=== PATIENT | female | born 1950 | race Caucasian/White ===

== ENCOUNTER 2021-05-07 17:31 | Observation (INO) | payer MEDICARE ==
[2021-05-07] MEDS ORDERED: PANTOPRAZOLE 40 MG/10 ML VIAL IVP STA (18:35)
[2021-05-07 19:05] LABS: Basophils % (A) 0 %; Eosinophils # (A) 0.2 k/uL (0-0.7); Eosinophils % (A) 4 %; HCT 26.7 % (34.0-46.0); HGB 8.8 gm/dL (11.4-16.0); Lymphocytes # (A) 1.6 k/uL (1.0-4.8); Lymphocytes % (A) 24 %; MCH 29.9 pg (25.0-35.0); MCHC 33.1 g/dL (31.0-37.0); MCV 90.2 fL (80.0-100.0); Mean Platelet Volume 7.7; Monocytes # (A) 0.3 k/uL (0-1.0); Monocytes % (A) 5 %; Neutrophils # (A) 4.4 k/uL (1.3-7.7); Neutrophils % (A) 65 %; Platelet Count 190 k/uL (150-450); RBC 2.96 m/uL (3.80-5.40); RDW 15.2 % (11.5-15.5); WBC 6.7 k/uL (3.8-10.6)
[2021-05-07 19:15] LABS: Partial Thromboplastin Time 24.7 sec (22.0-30.0); Prothrombin Time 10.8 sec (9.0-12.0)
[2021-05-07 19:16] LABS: Albumin 3.5 g/dL (3.5-5.0); Calcium 8.6 mg/dL (8.4-10.2); Magnesium 1.9 mg/dL (1.6-2.3); Potassium 4.7 mmol/L (3.5-5.1); Total Bilirubin 0.2 mg/dL (0.2-1.3); Total Protein 6.6 g/dL (6.3-8.2)
--- NOTE | 2021-05-07 20:41 | ED ---
General Adult HPI - General Chief complaint: GI Bleed Stated complaint: Hypotensive, low heart rate, rectal bleeding Time Seen by Provider: 05/07/21 18:11 Source: patient, RN notes reviewed, old records reviewed Mode of arrival: ambulatory Limitations: no limitations - History of Present Illness Initial comments: Patient is a 70-year-old female with history of diabetes, heart disease, kidney disease, presenting to the emergency Department with complaints of low blood pressure as well as possible GI bleed. Patient usually lives in [place], all of her physicians are in [place]. She comes up here for a few months every year. She states that yesterday and today she had a very dark stools along with blood mixed in it. She also checked her blood pressure at home and it was low, she contact her doctors in [place] and they recommended coming in for evaluation. Patient has felt fatigued, short of breath and just generalized weakness. She states she only has "one good kidney." She denies any chest pains or shortness of breath, no abdominal pain. She denies any fevers or chills, no cough or congestion. She states she has been eating and drinking as normal. She is on Plavix and aspirin. She has no further complaints. Patient's vital signs are stable upon arrival. - Related Data Home Medications Medication Instructions Recorded Confirmed ALPRAZolam [Xanax] 0.5 mg PO BID PRN 05/07/21 05/07/21 Butalb/APAP/Caff 50-325-40Mg 1 tab PO Q4H PRN 05/07/21 05/07/21 [Fioricet 50-325-40] Carvedilol [Coreg] 25 mg PO BID 05/07/21 05/07/21 Clopidogrel [Plavix] 75 mg PO DAILY 05/07/21 05/07/21 Ergocalciferol (Vitamin D2) 1,250 mcg PO WE 05/07/21 05/07/21 [Drisdol (50,000 Iu)] Ferrous Sulfate [Feosol] 325 mg PO DAILY 05/07/21 05/07/21 Levothyroxine Sodium [Synthroid] 75 mcg PO DAILY 05/07/21 05/07/21 Pantoprazole [Protonix] 40 mg PO DAILY 05/07/21 05/07/21 Rosuvastatin [Crestor] 20 mg PO HS 05/07/21 05/07/21 Topiramate 200 mg PO HS 05/07/21 05/07/21 Torsemide [Demadex] 10 mg PO DAILY 05/07/21 05/07/21 Valsartan 160 mg PO HS 05/07/21 05/07/21 Venlafaxine HCl [Effexor] 100 mg PO BID 05/07/21 05/07/21 amLODIPine [Norvasc] 10 mg PO DAILY 05/07/21 05/07/21 oxyCODONE-APAP 5-325MG [Percocet 1 tab PO Q6HR PRN 05/07/21 05/07/21 5-325 mg] traZODone HCL 150 mg PO HS 05/07/21 05/07/21 Allergies Allergy/AdvReac Type Severity Reaction Status Date / Time ciprofloxacin [From Cipro] Allergy Unknown Verified 05/07/21 19:41 clarithromycin [From Biaxin] Allergy Unknown Verified 05/07/21 19:41 morphine Allergy Unknown Verified 05/07/21 19:41 Penicillins Allergy Unknown Verified 05/07/21 19:41 Review of Systems ROS Statement: Those systems with pertinent positive or pertinent negative responses have been documented in the HPI. ROS Other: All systems not noted in ROS Statement are negative. Past Medical History Past Medical History: Diabetes Mellitus, Thyroid Disorder Additional Past Medical History / Comment(s): Quad Bipass. kidney issues History of Any Multi-Drug Resistant Organisms: None Reported Past Surgical History: No Surgical Hx Reported, Appendectomy, Cholecystectomy, Hysterectomy Additional Past Surgical History / Comment(s): Quad Bipass. bowel surgery. Past Psychological History: No Psychological Hx Reported Smoking Status: Current every day smoker Past Alcohol Use History: None Reported Past Drug Use History: None Reported General Exam - General Exam Comments Initial Comments: GENERAL: Patient is well-developed and well-nourished. Patient is nontoxic and in no acute distress, slightly pale. HEAD: Atraumatic, normocephalic. EYES: Pupils equal round and reactive to light, extraocular movements intact, sclera anicteric, conjunctiva are normal. Eyelids were unremarkable. ENT: Nares patent, oropharynx clear without exudates. Dry mucous membranes. NECK: Normal range of motion, supple without lymphadenopathy or JVD. LUNGS: Unlabored respirations. Breath sounds clear to auscultation bilaterally and equal. No wheezes rales or rhonchi. HEART: Regular rate and rhythm without murmurs, rubs or gallops. ABDOMEN: Soft, nontender, normoactive bowel sounds. No guarding, no rebound. No masses appreciated. MUSCULOSKELETAL: Normal extremities with adequate strength and normal range of motion, no pitting or edema. No clubbing or cyanosis. NEUROLOGICAL: Patient is alert and oriented x 3. Motor and sensory are also intact. Cranial nerves II through XII grossly intact. Symmetrical smile. Normal speech, normal gait. PSYCH: Normal mood, normal affect. SKIN: Warm, Dry, normal turgor, no rashes or lesions noted. Limitations: no limitations Rectal exam: Present: normal rectal tone, heme (-) stool, black stool. Absent: hemorrhoids Course Vital Signs 05/07/21 05/07/21 05/07/21 17:50 18:56 19:40 Temperature 98.6 F Pulse Rate 61 53 L 52 L Respiratory 18 20 20 Rate Blood Pressure 119/43 133/56 O2 Sat by Pulse 98 97 Oximetry 05/07/21 21:35 Temperature Pulse Rate 54 L Respiratory 20 Rate Blood Pressure 140/49 O2 Sat by Pulse 98 Oximetry EKG Findings - EKG Comments: EKG Findings:: Sinus bradycardia, septal infarct, age undetermined, no signs of acute ST segment elevation. Ventricular rate 54, NM interval 196, QTC 460. Medical Decision Making - Medical Decision Making Patient is a 70-year-old female history of diabetes, heart disease, kidney disease, presenting with low blood pressure at home, black stools mixed with blood over the last 2 days. She's felt generalized weakness. Her vitals are stable upon arrival. EKG shows sinus bradycardia, no acute process. Patient's labs show a normal white count, hemoglobin is lower 8.8, creatinine is elevated from baseline at 2.5 for the BUN of 50. Troponin is negative, stool occult came back negative, she did have black stools on exam. Patient did have blood work from a recent hospital stay in [place] which shows her hemoglobin at 10.2, her creatinine was at 189 with BUN 18. Patient will be admitted for HANSA, possible GI bleed. The patient accepted by Dr. Gaona. Case discussed with Dr. Dinero. - Lab Data Result diagrams: 05/07/21 18:56 05/07/21 18:56 Lab Results 05/07/21 05/07/21 05/07/21 Range/Units 18:56 18:56 18:56 WBC 6.7 (3.8-10.6) k/uL RBC 2.96 L (3.80-5.40) m/uL Hgb 8.8 L (11.4-16.0) gm/dL Hct 26.7 L (34.0-46.0) % MCV 90.2 (80.0-100.0) fL MCH 29.9 (25.0-35.0) pg MCHC 33.1 (31.0-37.0) g/dL RDW 15.2 (11.5-15.5) % Plt Count 190 (150-450) k/uL MPV 7.7 Neutrophils % 65 % Lymphocytes % 24 % Monocytes % 5 % Eosinophils % 4 % Basophils % 0 % Neutrophils # 4.4 (1.3-7.7) k/uL Lymphocytes # 1.6 (1.0-4.8) k/uL Monocytes # 0.3 (0-1.0) k/uL Eosinophils # 0.2 (0-0.7) k/uL Basophils # 0.0 (0-0.2) k/uL PT 10.8 (9.0-12.0) sec INR 1.0 (<1.2) APTT 24.7 (22.0-30.0) sec Sodium 138 (137-145) mmol/L Potassium 4.7 (3.5-5.1) mmol/L Chloride 110 H (98-107) mmol/L Carbon Dioxide 18 L (22-30) mmol/L Anion Gap 10 mmol/L BUN 50 H (7-17) mg/dL Creatinine 2.54 H (0.52-1.04) mg/dL Est GFR (CKD-EPI)AfAm 21 (>60 ml/min/1.73 sqM) Est GFR (CKD-EPI)NonAf 18 (>60 ml/min/1.73 sqM) Glucose 117 H (74-99) mg/dL Calcium 8.6 (8.4-10.2) mg/dL Magnesium 1.9 (1.6-2.3) mg/dL Total Bilirubin 0.2 (0.2-1.3) mg/dL AST 23 (14-36) U/L ALT 15 (4-34) U/L Alkaline Phosphatase 77 (38-126) U/L Troponin I (0.000-0.034) ng/mL Total Protein 6.6 (6.3-8.2) g/dL Albumin 3.5 (3.5-5.0) g/dL Stool Occult Blood (Negative) 05/07/21 05/07/21 Range/Units 18:56 18:56 WBC (3.8-10.6) k/uL RBC (3.80-5.40) m/uL Hgb (11.4-16.0) gm/dL Hct (34.0-46.0) % MCV (80.0-100.0) fL MCH (25.0-35.0) pg MCHC (31.0-37.0) g/dL RDW (11.5-15.5) % Plt Count (150-450) k/uL MPV Neutrophils % % Lymphocytes % % Monocytes % % Eosinophils % % Basophils % % Neutrophils # (1.3-7.7) k/uL Lymphocytes # (1.0-4.8) k/uL Monocytes # (0-1.0) k/uL Eosinophils # (0-0.7) k/uL Basophils # (0-0.2) k/uL PT (9.0-12.0) sec INR (<1.2) APTT (22.0-30.0) sec Sodium (137-145) mmol/L Potassium (3.5-5.1) mmol/L Chloride (98-107) mmol/L Carbon Dioxide (22-30) mmol/L Anion Gap mmol/L BUN (7-17) mg/dL Creatinine (0.52-1.04) mg/dL Est GFR (CKD-EPI)AfAm (>60 ml/min/1.73 sqM) Est GFR (CKD-EPI)NonAf (>60 ml/min/1.73 sqM) Glucose (74-99) mg/dL Calcium (8.4-10.2) mg/dL Magnesium (1.6-2.3) mg/dL Total Bilirubin (0.2-1.3) mg/dL AST (14-36) U/L ALT (4-34) U/L Alkaline Phosphatase (38-126) U/L Troponin I <0.012 (0.000-0.034) ng/mL Total Protein (6.3-8.2) g/dL Albumin (3.5-5.0) g/dL Stool Occult Blood Negative (Negative) Disposition Clinical Impression: Melena, HANSA (acute kidney injury), Anemia Disposition: ADMITTED IP TO THIS [facility] Condition: Stable Decision Date: 05/07/21 Decision Time: 20:41
[2021-05-07] MEDS ORDERED: NALOXONE 0.4 MG/ML 1 ML VIAL IV PRN (20:56)
[2021-05-07] MEDS ORDERED: ONDANSETRON 4 MG/2 ML VIAL IVP PRN (20:56)
[2021-05-07] MEDS ORDERED: ACETAMINOPHEN TAB 325 MG TAB PO PRN (20:56)
[2021-05-07] MEDS: SODIUM CHLORIDE 0.9% 1,000 ML IV SCH (21:47)
[2021-05-08] MEDS ORDERED: ALPRAZolam 0.5 MG TAB PO PRN (01:37)
--- NOTE | 2021-05-08 01:38 | P.HPIM ---
History of Present Illness H&P Date: 05/07/21 The patient is 71-year-old female, resident of [place], currently visiting family, with a PMH of hypertension, hypothyroidism, type II DM, peptic ulcer disease, chronic kidney disease, status post carotid endarterectomy in October 2020 who presents to the emergency room with complaints of fatigue and black tarry stools. Patient states that over the past 4-5 days, she has had gradually worsening lethargy. She noted to 3 days ago that she had developed black stools with intermittent bright red blood, non-mucousy. The patient states that she does take iron and has been doing so for several months now. She also reported somewhat diminished appetite over the past few days with decreased oral fluid intake. She denied any additional complaints. He denied chest discomfort, fever, cough. Denied nausea, vomiting, abdominal pain, diarrhea. Reports a prior history of GI bleeding at which time an endoscopy had revealed several ulcers requiring intervention several years ago. The patient had paperwork from hospital visit in [place] with laboratory evaluations noted. In our emergency room, laboratory evaluation had revealed a hemoglobin of 8.8 (previously 10), creatinine 2.54 (previously 1.89), stool occult blood negative, troponin less than 0.012, and platelets 190. Review of systems: Pertinent positives and negatives as discussed in HPI, a complete review of systems was performed and all other systems are negative. Physical examination: General: non toxic, no distress, appears at stated age, overweight Derm: no unusual rashes/lesions no unusual ecchymoses, warm, dry Head: atraumatic, normocephalic, symmetric Eyes: EOMI, no lid lag, anicteric sclera, pupils equal round reactive to light ENT: Nose and ears atraumatic, no thrush, no pharyngeal erythema Neck: No thyromegaly, no cervical lymphadenopathy, trachea midline, supple Mouth: no lip lesion, mucus membranes moist Cardiovascular: S1S2 reg, no murmur, positive posterior tibial pulse bilateral, no edema, capillary refill less than 2 seconds Lungs: CTA bilateral, no rhonchi, no rales , no accessory muscle use Abdominal: soft, nontender to palpation, no guarding, no appreciable organomegaly, normal bowel sounds Ext: no gross muscle atrophy, muscle strength 5 out of 5 in all 4 extremities grossly, no contractures, Neuro: CN II-XI grossly intact, light touch intact all 4 extremities, finger to nose within normal limits, Psych: Alert, oriented, appropriate affect Assessment/plan Acute kidney injury on chronic kidney disease -Likely secondary to poor oral intake -Gentle IV hydration and monitor BMP Normocytic anemia suspected secondary to GI bleeding with history of bleeding peptic ulcer disease -GI consulted -Clear liquid diet for now -Protonix IV Chronic conditions: Hypertension, hyperlipidemia, peripheral arterial disease, hypothyroidism, type II DM -Continue with home meds except antiplatelets in setting of suspected acute GI bleeding DVT prophylaxis -IPCDs The patient is admitted with an anticipated less than 2 midnight stay for evaluation of GIB CODE STATUS: Full Code Discussed with: Patient Anticipated discharge date: in am Anticipated discharge place: Home Past Medical History Past Medical History: Diabetes Mellitus, Thyroid Disorder Additional Past Medical History / Comment(s): Quad Bipass. kidney issues History of Any Multi-Drug Resistant Organisms: None Reported Past Surgical History: No Surgical Hx Reported, Appendectomy, Cholecystectomy, Hysterectomy Additional Past Surgical History / Comment(s): Quad Bipass. bowel surgery. Past Anesthesia/Blood Transfusion Reactions: No Reported Reaction Past Psychological History: No Psychological Hx Reported Smoking Status: Current every day smoker Past Alcohol Use History: None Reported Past Drug Use History: None Reported - Past Family History Mother Family Medical History: Cancer Medications and Allergies Home Medications Medication Instructions Recorded Confirmed Type ALPRAZolam [Xanax] 0.5 mg PO BID PRN 05/07/21 05/07/21 History Butalb/APAP/Caff 50-325-40Mg 1 tab PO Q4H PRN 05/07/21 05/07/21 History [Fioricet 50-325-40] Carvedilol [Coreg] 25 mg PO BID 05/07/21 05/07/21 History Clopidogrel [Plavix] 75 mg PO DAILY 05/07/21 05/07/21 History Ergocalciferol (Vitamin D2) 1,250 mcg PO WE 05/07/21 05/07/21 History [Drisdol (50,000 Iu)] Ferrous Sulfate [Feosol] 325 mg PO DAILY 05/07/21 05/07/21 History Levothyroxine Sodium [Synthroid] 75 mcg PO DAILY 05/07/21 05/07/21 History Pantoprazole [Protonix] 40 mg PO DAILY 05/07/21 05/07/21 History Rosuvastatin [Crestor] 20 mg PO HS 05/07/21 05/07/21 History Topiramate 200 mg PO HS 05/07/21 05/07/21 History Torsemide [Demadex] 10 mg PO DAILY 05/07/21 05/07/21 History Valsartan 160 mg PO HS 05/07/21 05/07/21 History Venlafaxine HCl [Effexor] 100 mg PO BID 05/07/21 05/07/21 History amLODIPine [Norvasc] 10 mg PO DAILY 05/07/21 05/07/21 History oxyCODONE-APAP 5-325MG [Percocet 1 tab PO Q6HR PRN 05/07/21 05/07/21 History 5-325 mg] traZODone HCL 150 mg PO HS 05/07/21 05/07/21 History Allergies Allergy/AdvReac Type Severity Reaction Status Date / Time ciprofloxacin [From Cipro] Allergy Unknown Verified 05/07/21 19:41 clarithromycin [From Biaxin] Allergy Unknown Verified 05/07/21 19:41 morphine Allergy Unknown Verified 05/07/21 19:41 Penicillins Allergy Unknown Verified 05/07/21 19:41 Physical Exam Vitals: Vital Signs Temp Pulse Pulse Resp BP BP Pulse Ox 05/07/21 23:40 98.2 F 56 L 16 150/66 99 05/07/21 21:35 54 L 20 140/49 98 05/07/21 19:40 52 L 20 133/56 97 05/07/21 18:56 53 L 20 05/07/21 17:50 98.6 F 61 18 119/43 98 Intake and Output 05/07/21 05/07/21 05/08/21 14:59 22:59 06:59 Other: Weight 86.183 kg Results CBC & Chem 7: 05/07/21 18:56 05/07/21 18:56 Labs: Abnormal Lab Results - Last 24 Hours (Table) 05/07/21 05/07/21 Range/Units 18:56 18:56 RBC 2.96 L (3.80-5.40) m/uL Hgb 8.8 L (11.4-16.0) gm/dL Hct 26.7 L (34.0-46.0) % Chloride 110 H (98-107) mmol/L Carbon Dioxide 18 L (22-30) mmol/L BUN 50 H (7-17) mg/dL Creatinine 2.54 H (0.52-1.04) mg/dL Glucose 117 H (74-99) mg/dL Thrombosis Risk Factor Assmnt - Choose All That Apply Any of the Below Risk Factors Present?: Yes Each Factor Represents 1 point: Obesity (BMI >25) Other Risk Factors: Yes Each Risk Factor Represents 2 Points: Age 61-74 years Other congenital or acquired thrombophilia - If yes, enter type in comment: No Thrombosis Risk Factor Assessment Total Risk Factor Score: 3 Thrombosis Risk Factor Assessment Level: Moderate Risk
[2021-05-08] MEDS: LEVOTHYROXINE 75 MCG TAB PO SCH (05:59)
[2021-05-08] MEDS ORDERED: BUTALB/APAP/CAFF 50-325-40MG TAB PO PRN (08:00)
[2021-05-08] MEDS: PANTOPRAZOLE 40 MG/10 ML VIAL IV SCH (09:37)
[2021-05-08 12:16] LABS: HGB 7.7 g/dL (12.0-15.0); MCH 28.3 pg (27.0-32.0); MCHC 30.8 g/dL (32.0-37.0); MCV 91.9 fL (80.0-97.0); Mean Platelet Volume 10.8 fL (9.5-12.2); Platelet Count 157 X 10*3/uL (140-440); RBC 2.72 X 10*6/uL (4.10-5.20); RDW 14.6 % (11.5-14.5)
--- NOTE | 2021-05-08 12:44 | P.PN ---
Subjective Patient is doing fairly well today. She denies any bowel movement since admission. No acute events overnight. Hemoglobin this morning 7.7. Objective - Vital Signs Vital signs: Vital Signs Temp 98.0 F 05/08/21 07:00 Pulse 56 L 05/08/21 07:00 Resp 16 05/08/21 08:00 BP 137/56 05/08/21 07:00 Pulse Ox 98 05/08/21 07:00 Intake & Output 05/07/21 05/08/21 05/08/21 18:59 06:59 18:59 Weight 86.183 kg 86.183 kg Other: # Voids 2 1 - Exam General: The patient is awake and alert, in no distress Eye: there is normal conjunctiva bilaterally. Neck: The neck is supple, there is no JVD. Cardiovascular: Normal S1-S2, no S3-S4, no murmurs. Respiratory: Lungs clear to auscultation bilaterally Gastrointestinal: Abdomen is soft, nontender Musculoskeletal: There is no pedal edema. Neurological:. Speech is normal. Skin: Skin is warm and dry - Labs CBC & Chem 7: 05/08/21 06:28 05/07/21 18:56 Labs: Abnormal Lab Results - Last 24 Hours (Table) 05/07/21 05/07/21 05/08/21 Range/Units 18:56 18:56 06:28 RBC 2.96 L 2.72 L (3.80-5.40) m/uL Hgb 8.8 L 7.7 L (11.4-16.0) gm/dL Hct 26.7 L 25.0 L (34.0-46.0) % MCHC 30.8 L (32.0-37.0) g/dL RDW 14.6 H (11.5-14.5) % Chloride 110 H (98-107) mmol/L Carbon Dioxide 18 L (22-30) mmol/L BUN 50 H (7-17) mg/dL Creatinine 2.54 H (0.52-1.04) mg/dL Glucose 117 H (74-99) mg/dL Assessment and Plan Assessment: The patient is 71-year-old female, resident of [place], currently visiting family, with a PMH of hypertension, hypothyroidism, type II DM, peptic ulcer disease, chronic kidney disease, status post carotid endarterectomy in October 2020 who presents to the emergency room with complaints of fatigue and black tarry stools. Patient was evaluated in the ER and admitted to the hospital for further management of her medical problems noted below. Assessment/plan Acute kidney injury on chronic kidney disease -Likely secondary to poor oral intake -Gentle IV hydration and monitor BMP awaiting repeat creatinine today Normocytic anemia suspected secondary to GI bleeding with history of bleeding peptic ulcer disease -Gen. surgery consulted -Nothing by mouth awaiting evaluation -Protonix IV Chronic conditions: Hypertension, hyperlipidemia, peripheral arterial disease, hypothyroidism, type II DM -Continue with home meds except antiplatelets in setting of suspected acute GI bleeding DVT prophylaxis -IPCDs The patient is admitted with an anticipated less than 2 midnight stay for evaluation of GIB CODE STATUS: Full Code Discussed with: Patient Anticipated discharge date: in am Anticipated discharge place: Home
[2021-05-08] MEDS: carvediloL 12.5 MG TAB PO SCH ×2 (12:59→17:28)
[2021-05-08 13:15] LABS: African American GFR (CKD) 21.5 (60.0-200.0); Anion Gap 11.2 mmol/L (4.00-12.00); BUN/Creat Ratio 18.4 Ratio (12.00-20.00); Calcium 8.6 mg/dL (8.7-10.3); Carbon Dioxide 17.8 mmol/L (21.6-31.8); Non-African American GFR(CKD) 18.6 (60.0-200.0); Potassium 4.2 mmol/L (3.5-5.5)
[2021-05-08] MEDS: SODIUM CHLORIDE 0.9% 1,000 ML IV SCH ×2 (14:25→19:55)
[2021-05-08] MEDS: FERROUS SULFATE 325 MG TAB PO SCH (14:26)
--- NOTE | 2021-05-08 14:30 | P.GSCN ---
History of Present Illness Consult date: 05/08/21 History of present illness: CHIEF COMPLAINT: Hematochezia HISTORY OF PRESENT ILLNESS: The patient is a 70 year old female visiting from [place] who reports three days of dark stools including epigastric abdominal pain. She reports significant cardiac history including CABG over 3 years ago with resultant GI bleed from perforation along her intestine. Her last colono scopy was over 5 years. She reports seeing her physicians prior to her visit to [place]. Her hemoglobin on admission was 8.8 mg/dL. She takes plavix and aspirin for her coronary artery disease. She drinks moderate amounts of coffee daily and complains of a headache. General surgery is consulted for GI bleed. PAST MEDICAL HISTORY: See list and reviewed PAST SURGICAL HISTORY: See list and reviewed MEDICATIONS: See list and reviewed ALLERGIES: See list and reviewed SOCIAL HISTORY: See list and reviewed FAMILY HISTORY: See list and reviewed REVIEW OF ORGAN SYSTEMS: CONSTITUTIONAL: No fevers or chills. No recent weight loss. EYES: Denies any trouble with vision. No glasses. HEENT: No difficulties with hearing. No nosebleeds. No difficulty swallowing. RESPIRATORY: Denies pneumonia. Denies any troubles with breathing or dyspnea on exertion. CARDIOVASCULAR: Has coronary artery disease status post CABG 3 years ago. Has congestive heart failure. Has hyperlipidemia. Has hypertensive heart disease. GASTROINTESTINAL: Has dark blood in stools. Past history of GI bleed with bowel perforation. Has gastroesophageal reflux disease. GENITOURINARY: Denies any blood in urine or increased urinary frequency. NEUROLOGICAL: Denies any numbness or tingling along the distal extremities. Has headaches. MUSCULOSKELETAL: Denies any back pain, stiffness or joint arthritis. SKIN: No current skin cancer. No rash. PSYCHIATRIC: Has depression. Has anxiety. ENDOCRINE: Has hypothyroidism. Has diabetes type II. HEME/LYMPHATIC: Denies any lumps and bumps around the neck. No recent deep venous thrombosis. ALLERGY/IMMUNOLOGY: No immunoglobulin therapy. No immune deficiencies. BREAST: Denies current breast lumps, pain or nipple discharge. PHYSICAL EXAM: VITALS: Reviewed CONSTITUTIONAL: Well developed and in no acute distress. EYES: Conjuctivae without sclera icterus. Extraocular movements grossly intact. HEAD, EARS, NOSE, THROAT: Moist buccal mucosa. Head is atraumatic, normocephalic. Hears conversational speech. No nasal drainage. NECK: Supple. No JV distention. No thyroidomegaly. RESPIRATORY: Non-labored respirations and equal bilateral excursions. No gross wheezes. CARDIOVASCULAR: Regular rate and rhythm. Palpable 2+ radial pulses. ABDOMEN: No peritonitis. LYMPH: No gross neck lymphadenopathy. MUSCULOSKELETAL: No clubbing, cyanosis. SKIN: Warm and well perfused with good skin turgor. NEUROLOGIC: Cranial nerves II through XII grossly intact. No focal or lateralizing signs. PSYCH: Appropriate affect. Alert and oriented to person, place and time. Displays appropriate insight. CLINCAL LABS: Reviewed. Hgb down from 8.8 to 7.7. Creatinine elevated 2.54. EKG: Sinus bradycardia and septal infarct. ASSESSMENT: 1. GI bleed 2. Coronary artery disease 3. Anemia. 4. Acute kidney injury. PLAN: 1. Recommend EGD and colonoscopy for GI bleed. 2. May have clear liquid diet and coffee 3. Bowel prep described. 4. Hold Plavix and antiplatelets. ADVANCE DIRECTIVE: Thank you for this kind consultation. Past Medical History Past Medical History: Diabetes Mellitus, Thyroid Disorder Additional Past Medical History / Comment(s): Quad Bipass. kidney issues History of Any Multi-Drug Resistant Organisms: None Reported Past Surgical History: No Surgical Hx Reported, Appendectomy, Cholecystectomy, Hysterectomy Additional Past Surgical History / Comment(s): Quad Bipass. bowel surgery. Past Anesthesia/Blood Transfusion Reactions: No Reported Reaction Past Psychological History: No Psychological Hx Reported Smoking Status: Current every day smoker Past Alcohol Use History: None Reported Past Drug Use History: None Reported - Past Family History Mother Family Medical History: Cancer Medications and Allergies Home Medications Medication Instructions Recorded Confirmed Type ALPRAZolam [Xanax] 0.5 mg PO BID PRN 05/07/21 05/07/21 History Butalb/APAP/Caff 50-325-40Mg 1 tab PO Q4H PRN 05/07/21 05/07/21 History [Fioricet 50-325-40] Carvedilol [Coreg] 25 mg PO BID 05/07/21 05/07/21 History Clopidogrel [Plavix] 75 mg PO DAILY 05/07/21 05/07/21 History Ergocalciferol (Vitamin D2) 1,250 mcg PO WE 05/07/21 05/07/21 History [Drisdol (50,000 Iu)] Ferrous Sulfate [Feosol] 325 mg PO DAILY 05/07/21 05/07/21 History Levothyroxine Sodium [Synthroid] 75 mcg PO DAILY 05/07/21 05/07/21 History Pantoprazole [Protonix] 40 mg PO DAILY 05/07/21 05/07/21 History Rosuvastatin [Crestor] 20 mg PO HS 05/07/21 05/07/21 History Topiramate 200 mg PO HS 05/07/21 05/07/21 History Torsemide [Demadex] 10 mg PO DAILY 05/07/21 05/07/21 History Valsartan 160 mg PO HS 05/07/21 05/07/21 History Venlafaxine HCl [Effexor] 100 mg PO BID 05/07/21 05/07/21 History amLODIPine [Norvasc] 10 mg PO DAILY 05/07/21 05/07/21 History oxyCODONE-APAP 5-325MG [Percocet 1 tab PO Q6HR PRN 05/07/21 05/07/21 History 5-325 mg] traZODone HCL 150 mg PO HS 05/07/21 05/07/21 History Allergies Allergy/AdvReac Type Severity Reaction Status Date / Time ciprofloxacin [From Cipro] Allergy Unknown Verified 05/07/21 19:41 clarithromycin [From Biaxin] Allergy Unknown Verified 05/07/21 19:41 morphine Allergy Unknown Verified 05/07/21 19:41 Penicillins Allergy Unknown Verified 05/07/21 19:41 Surgical - Exam Vital Signs Temp Pulse Resp BP Pulse Ox 98.6 F 61 18 119/43 98 05/07/21 17:50 05/07/21 17:50 05/07/21 17:50 05/07/21 17:50 05/07/21 17:50 Results - Labs 05/08/21 06:28 05/08/21 06:28 Abnormal Lab Results - Last 24 Hours (Table) 05/07/21 05/07/21 05/08/21 Range/Units 18:56 18:56 06:28 RBC 2.96 L 2.72 L (3.80-5.40) m/uL Hgb 8.8 L 7.7 L (11.4-16.0) gm/dL Hct 26.7 L 25.0 L (34.0-46.0) % MCHC 30.8 L (32.0-37.0) g/dL RDW 14.6 H (11.5-14.5) % Chloride 110 H (98-107) mmol/L Carbon Dioxide 18 L (22-30) mmol/L BUN 50 H (7-17) mg/dL Creatinine 2.54 H (0.52-1.04) mg/dL Est GFR (CKD-EPI)AfAm (60.0-200.0) Est GFR (CKD-EPI)NonAf (60.0-200.0) Glucose 117 H (74-99) mg/dL Calcium (8.7-10.3) mg/dL 05/08/21 Range/Units 06:28 RBC (3.80-5.40) m/uL Hgb (11.4-16.0) gm/dL Hct (34.0-46.0) % MCHC (32.0-37.0) g/dL RDW (11.5-14.5) % Chloride 111 H (98-107) mmol/L Carbon Dioxide 17.8 L (22-30) mmol/L BUN 46.0 H (7-17) mg/dL Creatinine 2.5 H (0.52-1.04) mg/dL Est GFR (CKD-EPI)AfAm 21.5 L (60.0-200.0) Est GFR (CKD-EPI)NonAf 18.6 L (60.0-200.0) Glucose (74-99) mg/dL Calcium 8.6 L (8.7-10.3) mg/dL Diabetes panel 05/07/21 05/08/21 Range/Units 18:56 06:28 Sodium 138 140 (137-145) mmol/L Potassium 4.7 4.2 (3.5-5.1) mmol/L Chloride 110 H 111 H (98-107) mmol/L Carbon Dioxide 18 L 17.8 L (22-30) mmol/L BUN 50 H 46.0 H (7-17) mg/dL Creatinine 2.54 H 2.5 H (0.52-1.04) mg/dL Glucose 117 H 82 (74-99) mg/dL Calcium 8.6 8.6 L (8.4-10.2) mg/dL AST 23 (14-36) U/L ALT 15 (4-34) U/L Alkaline Phosphatase 77 (38-126) U/L Total Protein 6.6 (6.3-8.2) g/dL Albumin 3.5 (3.5-5.0) g/dL Calcium panel 05/07/21 05/08/21 Range/Units 18:56 06:28 Calcium 8.6 8.6 L (8.4-10.2) mg/dL Albumin 3.5 (3.5-5.0) g/dL Pituitary panel 05/07/21 05/08/21 Range/Units 18:56 06:28 Sodium 138 140 (137-145) mmol/L Potassium 4.7 4.2 (3.5-5.1) mmol/L Chloride 110 H 111 H (98-107) mmol/L Carbon Dioxide 18 L 17.8 L (22-30) mmol/L BUN 50 H 46.0 H (7-17) mg/dL Creatinine 2.54 H 2.5 H (0.52-1.04) mg/dL Glucose 117 H 82 (74-99) mg/dL Calcium 8.6 8.6 L (8.4-10.2) mg/dL Adrenal panel 05/07/21 05/08/21 Range/Units 18:56 06:28 Sodium 138 140 (137-145) mmol/L Potassium 4.7 4.2 (3.5-5.1) mmol/L Chloride 110 H 111 H (98-107) mmol/L Carbon Dioxide 18 L 17.8 L (22-30) mmol/L BUN 50 H 46.0 H (7-17) mg/dL Creatinine 2.54 H 2.5 H (0.52-1.04) mg/dL Glucose 117 H 82 (74-99) mg/dL Calcium 8.6 8.6 L (8.4-10.2) mg/dL Total Bilirubin 0.2 (0.2-1.3) mg/dL AST 23 (14-36) U/L ALT 15 (4-34) U/L Alkaline Phosphatase 77 (38-126) U/L Total Protein 6.6 (6.3-8.2) g/dL Albumin 3.5 (3.5-5.0) g/dL Assessment and Plan (1) Coronary artery disease Current Visit: Yes Status: Acute Code(s): I25.10 - ATHSCL HEART DISEASE OF [place] CORONARY ARTERY W/O ANG PCTRS SNOMED Code(s): 65271145 (2) HANSA (acute kidney injury) Current Visit: Yes Status: Acute Code(s): N17.9 - ACUTE KIDNEY FAILURE, UNSPECIFIED SNOMED Code(s): 90083850 (3) Anemia Current Visit: Yes Status: Acute Code(s): D64.9 - ANEMIA, UNSPECIFIED SNOM ED Code(s): 362513168 (4) Melena Current Visit: Yes Status: Acute Code(s): K92.1 - MELENA SNOMED Code(s): 2668778
[2021-05-08] MEDS ORDERED: POLYETHYLENE GLYCOL LYTES SOLN 4,000 ML SOLN.RECON PO ONE (14:31)
[2021-05-08] MEDS: amLODIPine 10 MG TAB PO SCH (14:40)
[2021-05-08] MEDS: VALSARTAN 160 MG TAB PO SCH (19:54)
[2021-05-08] MEDS: ATORVASTATIN 40 MG TAB PO SCH (19:54)
[2021-05-08] MEDS: TOPIRAMATE 100 MG TAB PO SCH (19:55)
[2021-05-08] MEDS: oxyCODONE-APAP 5-325MG 1 EACH TAB PO PRN (20:41)
[2021-05-08] MEDS: traZODone HCL 50 MG TAB PO SCH (22:13)
[2021-05-09] MEDS: SODIUM CHLORIDE 0.9% 1,000 ML IV SCH ×3 (03:27→19:18)
[2021-05-09] MEDS: LEVOTHYROXINE 75 MCG TAB PO SCH (05:44)
[2021-05-09] MEDS: PANTOPRAZOLE 40 MG/10 ML VIAL IV SCH (08:46)
[2021-05-09 09:20] LABS: Basophils # (A) 0.04 X 10*3/uL (0.00-0.10); Basophils % (A) 0.6 %; Eosinophils # (A) 0.22 X 10*3/uL (0.04-0.35); Eosinophils % (A) 3.5 %; HCT 26.4 % (37.2-46.3); HGB 8.1 g/dL (12.0-15.0); Lymphocytes # (A) 2.15 X 10*3/uL (0.90-5.00); Lymphocytes % (A) 33.8 %; MCH 28.2 pg (27.0-32.0); MCHC 30.7 g/dL (32.0-37.0); Mean Platelet Volume 10.6 fL (9.5-12.2); Monocytes % (A) 6.3 %; Neutrophils # (A) 3.53 X 10*3/uL (1.80-7.70); Neutrophils % (A) 55.3 %; Platelet Count 158 X 10*3/uL (140-440); RBC 2.87 X 10*6/uL (4.10-5.20); RDW 14.7 % (11.5-14.5); WBC 6.37 X 10*3/uL (4.50-10.00)
[2021-05-09] MEDS ORDERED: PROPOFOL 10 MG/ML 20 ML VIAL IV ONE (09:34)
[2021-05-09] MEDS ORDERED: IV FLUID CONTINUATION 1,000 ML IV ONE (09:36)
--- NOTE | 2021-05-09 09:57 | P.PCN ---
Date of Procedure: 05/09/21 Description of Procedure: PREOPERATIVE DIAGNOSIS: Gastrointestinal bleeding Anemia POSTOPERATIVE DIAGNOSIS: Gastrointestinal bleeding Anemia Gastritis without active bleeding Diaphragmatic hiatal hernia OPERATION: Esophagogastroduodenoscopy with biopsies along antrum, duodenum SURGEON: Jayshree Nixon MD ANESTHESIA: MAC. INDICATIONS: The patient is a 70-year-old female who presents with gastrointestinal bleeding including anemia. Benefits and risks of the procedure were described. Informed consent was obtained. DESCRIPTION: The patient was brought into the endoscopy suite and laid in the left lateral decubitus position. An Olympus gastroscope was passed along the posterior oropharynx down to the distal esophagus where the squamocolumnar junction was encountered at 35 cm from the incisors. The stomach was entered and no bile reflux was found. Additional findings are listed below. Biopsies with cold forceps were obtained of the antrum. The first through third portion of the duodenum was examined and cold forceps biopsies obtained of the duodenum. Retroflexion of the scope confirmed Hill grade 4 lower esophageal valve. The squamocolumnar junction demonstrated LA grade C erosive esophagitis. The stomach was desufflated. The patient tolerated the procedure well. FINDINGS: Squamocolumnar junction 35 cm from the incisors. Diaphragmatic hiatus at 40 cm. Hiatal hernia, 5 cm Hill grade 4 lower esophageal valve. LA grade C erosive esophagitis. Cold biopsies obtained of duodenum for celiac disease Chronic gastritis without recent bleed RECOMMENDATIONS: Upper endoscopy as needed.
[2021-05-09 10:01] LABS: Anion Gap 8.7 mmol/L (4.00-12.00); BUN/Creat Ratio 16.45 Ratio (12.00-20.00); Blood Urea Nitrogen 35.2 mg/dL (9.0-27.0); Calcium 8.2 mg/dL (8.7-10.3); Carbon Dioxide 18.2 mmol/L (21.6-31.8); Non-African American GFR(CKD) 22.4 (60.0-200.0); Potassium 4.3 mmol/L (3.5-5.5)
--- NOTE | 2021-05-09 10:38 | P.PCN ---
Date of Procedure: 05/09/21 Description of Procedure: PREOPERATIVE DIAGNOSIS: Acute blood loss anemia Positive occult stool Gastrointestinal bleeding with melena POSTOPERATIVE DIAGNOSIS: Acute blood loss anemia Positive occult stool Gastrointestinal bleeding with melena Multiple arteriovenous malformations, cecum, proximal transverse colon Sigmoid diverticulosis without active bleeding Internal and external hemorrhoids, grade 3 without active bleeding OPERATION: Colonoscopy to the cecum, ileocecal valve and appendiceal orifice Colonoscopy with ERBIE ablation of multiple arteriovenous malformations, cecum, proximal transverse colon SURGEON: Jayshree Nixon MD. ANESTHESIA: MAC. INDICATIONS: The patient is a 70-year-old female who presents with gastrointestinal bleeding and positive occult stool. Benefits and risks were described and informed consent was obtained. DESCRIPTION OF PROCEDURE: The patient had undergone attempted Golytely prep 2 L. The patient had been brought into the operating room and laid in the left lateral decubitus position. After adequate intravenous sedation, the rectum was examined with 2% lidocaine jelly. External prolapse hemorrhoids were identified without active bleeding. The rectal tone was within normal limits An Olympus colonoscope was gently advanced to the cecum and ileocecal valve including appendiceal orifice. The prep was fair. Dark affluent consistent with upper GI source bleeding was suctioned throughout the colon. Sigmoid diverticulosis was encountered without active bleeding. Multiple arteriovenous malformations at least 4 along the proximal transverse colon and 2 along the cecum were ablated using ERBIE. No intraluminal masses were identified within the colon. No large colonic polyps were found. No evidence of focal colitis was found. Retroflexion of the scope demonstrated grade 3 internal hemorrhoids without recent inflammation. The colon was desufflated. The patient had tolerated the procedure well. Withdrawal time was over 6 minutes. FINDINGS: Aronchick preparation quality scale 3 (1-5) External hemorrhoids, grade 3 without inflammation Internal hemorrhoids, grade 3 without inflammation No thrombosed hemorrhoid identified. Multiple arteriovenous malformations at least 4 along the proximal transverse colon and 2 along the cecum were ablated using ERBIE. No large adenomatous polyps. Multiple sigmoid diverticulosis without diverticulitis or bleeding No focal colitis. RECOMMENDATIONS: 1. Diet as tolerated. 2. With findings of multiple arteriovenous malformations in the colon, patient has high likelihood for arteriovenous malformations in the small bowel. 3. May benefit from pill endoscopy for small bowel assessment 4. Recommend discontinue NSAIDs as patient has prior history of GI bleed or similar manner of the small bowel 5. Repeat colonoscopy in 3 years, 2023 Plan - Discharge Summary Discharge Rx Participant: Yes New Discharge Prescriptions: No Action Venlafaxine HCl [Effexor] 100 mg PO BID Ferrous Sulfate [Feosol] 325 mg PO DAILY traZODone HCL 150 mg PO HS oxyCODONE-APAP 5-325MG [Percocet 5-325 mg] 1 tab PO Q6HR PRN PRN Reason: Pain Pantoprazole [Protonix] 40 mg PO DAILY Butalb/APAP/Caff 50-325-40Mg [Fioricet 50-325-40] 1 tab PO Q4H PRN PRN Reason: Migraine Headache Ergocalciferol (Vitamin D2) [Drisdol (50,000 Iu)] 1,250 mcg PO WE Valsartan 160 mg PO HS Torsemide [Demadex] 10 mg PO DAILY Topiramate 200 mg PO HS Rosuvastatin [Crestor] 20 mg PO HS Levothyroxine Sodium [Synthroid] 75 mcg PO DAILY Clopidogrel [Plavix] 75 mg PO DAILY Carvedilol [Coreg] 25 mg PO BID amLODIPine [Norvasc] 10 mg PO DAILY ALPRAZolam [Xanax] 0.5 mg PO BID PRN PRN Reason: Anxiety Discharge Medication List ALPRAZolam [Xanax] 0.5 mg PO BID PRN 05/07/21 [History] Butalb/APAP/Caff 50-325-40Mg [Fioricet 50-325-40] 1 tab PO Q4H PRN 05/07/21 [History] Carvedilol [Coreg] 25 mg PO BID 05/07/21 [History] Clopidogrel [Plavix] 75 mg PO DAILY 05/07/21 [History] Ergocalciferol (Vitamin D2) [Drisdol (50,000 Iu)] 1,250 mcg PO WE 05/07/21 [History] Ferrous Sulfate [Feosol] 325 mg PO DAILY 05/07/21 [History] Levothyroxine Sodium [Synthroid] 75 mcg PO DAILY 05/07/21 [History] Pantoprazole [Protonix] 40 mg PO DAILY 05/07/21 [History] Rosuvastatin [Crestor] 20 mg PO HS 05/07/21 [History] Topiramate 200 mg PO HS 05/07/21 [History] Torsemide [Demadex] 10 mg PO DAILY 05/07/21 [History] Valsartan 160 mg PO HS 05/07/21 [History] Venlafaxine HCl [Effexor] 100 mg PO BID 05/07/21 [History] amLODIPine [Norvasc] 10 mg PO DAILY 05/07/21 [History] oxyCODONE-APAP 5-325MG [Percocet 5-325 mg] 1 tab PO Q6HR PRN 05/07/21 [History] traZODone HCL 150 mg PO HS 05/07/21 [History] Follow up Appointment(s)/Referral(s): Nonstaff,Physician [Primary Care Provider] - 1-2 days
[2021-05-09] MEDS: amLODIPine 10 MG TAB PO SCH (11:27)
[2021-05-09] MEDS: carvediloL 12.5 MG TAB PO SCH ×2 (11:27→17:18)
[2021-05-09] MEDS: FERROUS SULFATE 325 MG TAB PO SCH (11:27)
--- NOTE | 2021-05-09 15:02 | P.PN ---
Subjective Progress Note Date: 05/09/21 CHIEF COMPLAINT: Hematochezia HISTORY OF PRESENT ILLNESS: The patient is a 70 year old female visiting from [place] with prior history of GI bleed due presented with similar 3 days of dark stools. She has been on antiplatelet therapy including Plavix. She completed an upper and lower endoscopy today. 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 She is tolerating diet. No nausea. REVIEW OF ORGAN SYSTEMS: No chest pain. No fevers or chills. No nausea and vomiting. PHYSICAL EXAM: VITALS: Reviewed CONSTITUTIONAL: Well developed and in no acute distress. EYES: Conjuctivae without sclera icterus. Extraocular movements grossly intact. HEAD, EARS, NOSE, THROAT: Moist buccal mucosa. Head is atraumatic, normocephalic. Hears conversational speech. No nasal drainage. RESPIRATORY: Non-labored respirations and equal bilateral excursions. No gross wheezes. CARDIOVASCULAR: Regular rate and rhythm. Palpable 2+ radial pulses. ABDOMEN: Nontender. No peritonitis. MUSCULOSKELETAL: No clubbing, cyanosis. SKIN: Warm and well perfused with good skin turgor. NEUROLOGIC: Cranial nerves II through XII grossly intact. No focal or later alizing signs. PSYCH: Appropriate affect. Alert and oriented to person, place and time. Displays appropriate insight. CLINCAL LABS: Reviewed. Hemoglobin of 7.7-8.1. ASSESSMENT: 1. GI bleed 2. Coronary artery disease 3. Anemia. 4. Acute kidney injury. PLAN: 1. Images of her upper and lower endoscopy reviewed. Patient has prior history of GI bleed with recurrent episode. Recommend discontinuation of NSAIDs including Plavix. Baby aspirin 81 mg reasonable. 2. Stable from a surgical standpoint for follow-up with her primary care providers in [place]. Objective - Vital Signs Vital signs: Vital Signs Temp 98.0 F 05/09/21 07:00 Pulse 52 L 05/09/21 11:35 Resp 16 05/09/21 11:35 BP 183/65 05/09/21 11:35 Pulse Ox 97 05/09/21 11:35 Intake & Output 05/08/21 05/09/21 05/09/21 18:59 06:59 18:59 Intake Total 1650 1275 Balance 1650 1275 Intake: IV 1275 Sodium Chloride 0.9% 1, 800 000 ml @ 100 mls/hr IV . Q10H [facility] Rx#:[id number] Intake, IV Titration 1200 Amount Sodium Chloride 0.9% 1, 1200 000 ml @ 100 mls/hr IV . Q10H [facility] Rx#:[id number] Oral 450 Other: # Voids 1 2 1 # Bowel Movements 1 4 1 - Labs CBC & Chem 7: 05/09/21 06:13 05/09/21 06:13 Labs: Abnormal Lab Results - Last 24 Hours (Table) 05/09/21 05/09/21 Range/Units 06:13 06:13 RBC 2.87 L (4.10-5.20) X 10*6/uL Hgb 8.1 L (12.0-15.0) g/dL Hct 26.4 L (37.2-46.3) % MCHC 30.7 L (32.0-37.0) g/dL RDW 14.7 H (11.5-14.5) % Chloride 114 H (96-109) mmol/L Carbon Dioxide 18.2 L (21.6-31.8) mmol/L BUN 35.2 H (9.0-27.0) mg/dL Creatinine 2.1 H (0.6-1.5) mg/dL Est GFR (CKD-EPI)AfAm 26.0 L (60.0-200.0) Est GFR (CKD-EPI)NonAf 22.4 L (60.0-200.0) Calcium 8.2 L (8.7-10.3) mg/dL Assessment and Plan (1) Coronary artery disease Current Visit: Yes Status: Acute Code(s): I25.10 - ATHSCL HEART DISEASE OF [place] CORONARY ARTERY W/O ANG PCTRS SNOMED Code(s): 98916717 (2) HANSA (acute kidney injury) Current Visit: Yes Status: Acute Code(s): N17.9 - ACUTE KIDNEY FAILURE, UNSPECIFIED SNOMED Code(s): 95353394 (3) Anemia Current Visit: Yes Status: Acute Code(s): D64.9 - ANEMIA, UNSPECIFIED SNOMED Code(s): 224772810 (4) Melena Current Visit: Yes Status: Acute Code(s): K92.1 - MELENA SNOMED Code(s): 3388004
--- NOTE | 2021-05-09 15:51 | P.PN ---
Subjective Patient underwent EGD and colonoscopy today. No acute events overnight. Objective - Vital Signs Vital signs: Vital Signs Temp 98.0 F 05/09/21 07:00 Pulse 52 L 05/09/21 11:35 Resp 16 05/09/21 11:35 BP 183/65 05/09/21 11:35 Pulse Ox 97 05/09/21 11:35 Intake & Output 05/08/21 05/09/21 05/09/21 18:59 06:59 18:59 Intake Total 1650 1275 Balance 1650 1275 Intake: IV 1275 Sodium Chloride 0.9% 1, 800 000 ml @ 100 mls/hr IV . Q10H [facility] Rx#:[id number] Intake, IV Titration 1200 Amount Sodium Chloride 0.9% 1, 1200 000 ml @ 100 mls/hr IV . Q10H [facility] Rx#:[id number] Oral 450 Other: # Voids 1 2 1 # Bowel Movements 1 4 1 - Exam General: The patient is awake and alert, in no distress Eye: there is normal conjunctiva bilaterally. Neck: The neck is supple, there is no JVD. Cardiovascular: Normal S1-S2, no S3-S4, no murmurs. Respiratory: Lungs clear to auscultation bilaterally Gastrointestinal: Abdomen is soft, nontender Musculoskeletal: There is no pedal edema. Neurological:. Speech is normal. Skin: Skin is warm and dry - Labs CBC & Chem 7: 05/09/21 06:13 05/09/21 06:13 Labs: Abnormal Lab Results - Last 24 Hours (Table) 05/09/21 05/09/21 Range/Units 06:13 06:13 RBC 2.87 L (4.10-5.20) X 10*6/uL Hgb 8.1 L (12.0-15.0) g/dL Hct 26.4 L (37.2-46.3) % MCHC 30.7 L (32.0-37.0) g/dL RDW 14.7 H (11.5-14.5) % Chloride 114 H (96-109) mmol/L Carbon Dioxide 18.2 L (21.6-31.8) mmol/L BUN 35.2 H (9.0-27.0) mg/dL Creatinine 2.1 H (0.6-1.5) mg/dL Est GFR (CKD-EPI)AfAm 26.0 L (60.0-200.0) Est GFR (CKD-EPI)NonAf 22.4 L (60.0-200.0) Calcium 8.2 L (8.7-10.3) mg/dL Assessment and Plan Assessment: The patient is 71-year-old female, resident of [place], currently visiting family, with a PMH of hypertension, hypothyroidism, type II DM, peptic ulcer disease, chronic kidney disease, status post carotid endarterectomy in October 2020 who presents to the emergency room with complaints of fatigue and black tarry stools. Patient was evaluated in the ER and admitted to the hospital for further management of her medical problems noted below. Assessment/plan Acute kidney injury on chronic kidney disease -Likely secondary to poor oral intake -Gentle IV hydration and monitor BMP awaiting repeat creatinine today Normocytic anemia suspected secondary to GI bleeding with history of bleeding peptic ulcer disease - status post EGD and colonoscopy during this admission -EGD showed no evidence of ongoing bleeding. Colonoscopy showed multiple AVMs status post ablation Chronic conditions: Hypertension, hyperlipidemia, peripheral arterial disease, hypothyroidism, type II DM -Continue with home meds except antiplatelets in setting of suspected acute GI bleeding DVT prophylaxis -IPCDs The patient is admitted with an anticipated less than 2 midnight stay for evaluation of GIB CODE STATUS: Full Code Discussed with: Patient Anticipated discharge date: in am Anticipated discharge place: Home
[2021-05-09] MEDS: traZODone HCL 50 MG TAB PO SCH (21:44)
[2021-05-09] MEDS: ATORVASTATIN 40 MG TAB PO SCH (21:44)
[2021-05-09] MEDS: TOPIRAMATE 100 MG TAB PO SCH (21:45)
[2021-05-09] MEDS: VALSARTAN 160 MG TAB PO SCH (21:45)
[2021-05-09] MEDS: oxyCODONE-APAP 5-325MG 1 EACH TAB PO PRN (21:51)
[2021-05-10] MEDS: SODIUM CHLORIDE 0.9% 1,000 ML IV SCH (07:32)
[2021-05-10] MEDS: carvediloL 12.5 MG TAB PO SCH (07:42)
[2021-05-10] MEDS: PANTOPRAZOLE 40 MG/10 ML VIAL IV SCH (07:42)
[2021-05-10] MEDS: LEVOTHYROXINE 75 MCG TAB PO SCH (07:42)
[2021-05-10] MEDS: FERROUS SULFATE 325 MG TAB PO SCH (07:42)
[2021-05-10] MEDS: amLODIPine 10 MG TAB PO SCH (07:42)
[2021-05-10 08:13] VITALS: BP 112/52; PULSE 68; RESP 17; TEMP 98.3
[2021-05-10 08:42] LABS: Basophils # (A) 0.04 X 10*3/uL (0.00-0.10); Basophils % (A) 0.4 %; Eosinophils # (A) 0.17 X 10*3/uL (0.04-0.35); Eosinophils % (A) 1.8 %; HCT 26.3 % (37.2-46.3); HGB 8.3 g/dL (12.0-15.0); Lymphocytes % (A) 16.3 %; MCH 29.1 pg (27.0-32.0); MCHC 31.6 g/dL (32.0-37.0); MCV 92.3 fL (80.0-97.0); Mean Platelet Volume 10.7 fL (9.5-12.2); Monocytes # (A) 0.58 X 10*3/uL (0.20-1.00); Monocytes % (A) 6.3 %; Neutrophils # (A) 6.88 X 10*3/uL (1.80-7.70); Platelet Count 163 X 10*3/uL (140-440); RBC 2.85 X 10*6/uL (4.10-5.20); RDW 14.6 % (11.5-14.5); WBC 9.19 X 10*3/uL (4.50-10.00)
--- NOTE | 2021-05-10 12:06 | P.DS ---
Providers Date of admission: 05/07/21 20:36 Attending physician: Ravin Gaona MD Consults: 05/08/21 01:37 Consult Physician Urgent Consulting Provider: Jayshree Nixon Consult Reason/Comments: GIB Do you want consulting provider notified?: Yes Primary care physician: Physician Nonstaff Patient Condition at Discharge: Stable Plan - Discharge Summary Discharge Rx Participant: Yes New Discharge Prescriptions: Continue Venlafaxine HCl [Effexor] 100 mg PO BID Ferrous Sulfate [Iron (65 MG Elemental)] 325 mg PO DAILY traZODone HCL 150 mg PO HS oxyCODONE-APAP 5-325MG [Percocet 5-325 mg] 1 tab PO Q6HR PRN PRN Reason: Pain Pantoprazole [Protonix] 40 mg PO DAILY Butalb/APAP/Caff 50-325-40Mg [Fioricet 50-325-40] 1 tab PO Q4H PRN PRN Reason: Migraine Headache Ergocalciferol (Vitamin D2) [Drisdol (50,000 Iu)] 1,250 mcg PO WE Valsartan 160 mg PO HS Torsemide [Demadex] 10 mg PO DAILY Topiramate 200 mg PO HS Rosuvastatin [Crestor] 20 mg PO HS Levothyroxine Sodium [Synthroid] 75 mcg PO DAILY Clopidogrel [Plavix] 75 mg PO DAILY Carvedilol [Coreg] 25 mg PO BID amLODIPine [Norvasc] 10 mg PO DAILY ALPRAZolam [Xanax] 0.5 mg PO BID PRN PRN Reason: Anxiety Discharge Medication List ALPRAZolam [Xanax] 0.5 mg PO BID PRN 05/07/21 [History] Butalb/APAP/Caff 50-325-40Mg [Fioricet 50-325-40] 1 tab PO Q4H PRN 05/07/21 [History] Carvedilol [Coreg] 25 mg PO BID 05/07/21 [History] Clopidogrel [Plavix] 75 mg PO DAILY 05/07/21 [History] Ergocalciferol (Vitamin D2) [Drisdol (50,000 Iu)] 1,250 mcg PO WE 05/07/21 [History] Ferrous Sulfate [Iron (65 MG Elemental)] 325 mg PO DAILY 05/07/21 [History] Levothyroxine Sodium [Synthroid] 75 mcg PO DAILY 05/07/21 [History] Pantoprazole [Protonix] 40 mg PO DAILY 05/07/21 [History] Rosuvastatin [Crestor] 20 mg PO HS 05/07/21 [History] Topiramate 200 mg PO HS 05/07/21 [History] Torsemide [Demadex] 10 mg PO DAILY 05/07/21 [History] Valsartan 160 mg PO HS 05/07/21 [History] Venlafaxine HCl [Effexor] 100 mg PO BID 05/07/21 [History] amLODIPine [Norvasc] 10 mg PO DAILY 05/07/21 [History] oxyCODONE-APAP 5-325MG [Percocet 5-325 mg] 1 tab PO Q6HR PRN 05/07/21 [History] traZODone HCL 150 mg PO HS 05/07/21 [History] Follow up Appointment(s)/Referral(s): Jayshree Nixon MD [STAFF PHYSICIAN] - 2 Weeks Nonstaff,Physician [Primary Care Provider] - 1-2 days Patient Instructions/Handouts: *Surgery [facility] - (Anesthesia) Endoscopy Discharge Instructions, Colonoscopy (DC), Upper Endoscopy (DC) Activity/Diet/Wound Care/Special Instructions: Stop NSAIDS Discharge Disposition: HOME SELF-CARE
--- NOTE | 2021-05-10 16:20 | P.PN ---
Subjective Progress Note Date: 05/10/21 CHIEF COMPLAINT: Hematochezia HISTORY OF PRESENT ILLNESS: The patient is a 70 year old female visiting from [place] with prior history of GI bleed due presented with similar 3 days of dark stools. She has been on antiplatelet therapy including Plavix. She completed an upper and lower endoscopy today. 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 She is tolerating diet. No nausea. Patient is having flatus. She denies any abdominal pain. She reports decrease in the amount of black stools. Hemoglobin is up to 8.3. Afebrile. PHYSICAL EXAM: VITAL SIGNS: Reviewed GENERAL: Well-developed in no acute distress. HEENT: No sclera icterus. Extraocular movements grossly intact. Moist buccal mucosa. Head is atraumatic, normocephalic. Hears conversational speech. No nasal drainage. NECK: Supple without lymphadenopathy. CHEST: Non-labored respirations and equal bilateral excursions. CARDIOVASCULAR: Palpable 2+ radial pulses. ABDOMEN: Soft. Nondistended. Nontender. MUSCULOSKELETAL: No clubbing or cyanosis. NEUROLOGIC: No focal or lateralizing signs. Cranial nerves II through XII grossly intact. PSYCH: Appropriate affect. Alert and oriented to person, place and time. SKIN: Well perfused. Good skin turgor. ASSESSMENT: 1. GI bleed status post EGD and colonoscopy with AV malformations of the colon and hiatal hernia of the upper abdomen noted 2. Coronary artery disease 3. Anemia. 4. Acute kidney injury PLAN: 1. Patient has prior history of GI bleed with recurrent episode. Recommend discontinuation of NSAIDs including Plavix. Baby aspirin 81 mg reasonable. 2. Stable from a surgical standpoint for follow-up with her primary care providers in [place]. 3. Patient can be discharge from surgical standpoint Physician Night Shift Manager note has been reviewed by physician. Signing provider agrees with the documented findings, assessment, and plan of care. Objective - Vital Signs Vital signs: Vital Signs Temp 98.3 F 05/10/21 07:00 Pulse 68 05/10/21 07:00 Resp 17 05/10/21 08:00 BP 112/52 05/10/21 07:00 Pulse Ox 98 05/10/21 07:00 Intake & Output 05/09/21 05/10/21 05/10/21 18:59 06:59 18:59 Intake Total 1275 2680 Balance 1275 2680 Intake: IV 1275 1600 Sodium Chloride 0.9% 1, 800 1600 000 ml @ 100 mls/hr IV . Q[facility]H [facility] Rx#:[id number] Oral 1080 Other: # Voids 2 3 # Bowel Movements 1 - Labs CBC & Chem 7: 05/10/21 04:56 05/09/21 06:13 Labs: Abnormal Lab Results - Last 24 Hours (Table) 05/10/21 Range/Units 04:56 RBC 2.85 L (4.10-5.20) X 10*6/uL Hgb 8.3 L (12.0-15.0) g/dL Hct 26.3 L (37.2-46.3) % MCHC 31.6 L (32.0-37.0) g/dL RDW 14.6 H (11.5-14.5) %
[2021-05-11] MEDS ORDERED: PANTOPRAZOLE 40 MG TABLET PO SCH (07:30)
== END 2021-05-10 13:05 | disposition home or self-care (01) ==
LOC: EC 17:31 → 6NMEDSUR 20:36
PROVIDERS: ADMIT Internal Medicine; ATTEND Internal Medicine
DX: K22.11 Ulcer of esophagus with bleeding (principal); E11.22 Type 2 diabetes mellitus with diabetic chronic kidney disease; I12.9 Hypertensive chronic kidney disease with stage 1 through stage 4 chronic kidney disease, or unspecified chronic kidney disease; N18.9 Chronic kidney disease, unspecified; N17.9 Acute kidney failure, unspecified; Z20.822 Contact with and (suspected) exposure to COVID-19; E11.51 Type 2 diabetes mellitus with diabetic peripheral angiopathy without gangrene; D62 Acute posthemorrhagic anemia; K27.4 Chronic or unspecified peptic ulcer, site unspecified, with hemorrhage; E78.5 Hyperlipidemia, unspecified; E03.9 Hypothyroidism, unspecified; I25.10 Atherosclerotic heart disease of native coronary artery without angina pectoris; K29.70 Gastritis, unspecified, without bleeding; K44.9 Diaphragmatic hernia without obstruction or gangrene; F17.200 Nicotine dependence, unspecified, uncomplicated; K57.30 Diverticulosis of large intestine without perforation or abscess without bleeding; Q27.30 Arteriovenous malformation, site unspecified; K64.4 Residual hemorrhoidal skin tags; K64.8 Other hemorrhoids; E66.9 Obesity, unspecified; Z68.28 Body mass index [BMI] 28.0-28.9, adult; Z79.02 Long term (current) use of antithrombotics/antiplatelets; Z79.82 Long term (current) use of aspirin; Z79.890 Hormone replacement therapy; Z79.899 Other long term (current) drug therapy; Z87.11 Personal history of peptic ulcer disease; Z95.1 Presence of aortocoronary bypass graft
CPT/HCPCS: 45388; 99285; 96376 ×2; 96361; 96374; 36415; 93005; 86900; 86901; 88305; 80053; 80048 ×2; 83735; 84484; 85025 ×3; 85027; 85610; 85730; 86850; 82272; 87635; 43239; G0378 ×4; J2704; C9113 ×4

== ENCOUNTER → 2023-09-04 | Outpatient (CLI) | payer MEDICARE ==
--- NOTE | 2023-09-04 12:36 | FL ---
Exam Date: 09/04/2023 12:11 PM. Modified barium swallow for dysphagia. Consistencies administered: Various consistency of barium. Fluoro time: Not reported No images were sent to PACS. Please see speech pathology report. DAP: Not reported mGym2 Gycm2 Postsurgical changes without evidence of contrast extravasation.
== END | disposition home or self-care (01) ==
LOC: RADFLMAIN 11:06
PROVIDERS: ATTEND Surgery
DX: R13.10 Dysphagia, unspecified (principal); Z98.890 Other specified postprocedural states
CPT/HCPCS: 74230